=== PATIENT | male | born 1975 | race Caucasian/White ===

== ENCOUNTER 2018-12-29 16:01 | Observation (INO) ==
--- NOTE | 2018-12-29 16:41 | XR ---
EXAM DATE: 12/29/2018 4:36 PM EST AGE/SEX: 43 years / Male INDICATIONS: . Chest pain. CLINICAL DATA: This is the patient's initial encounter. Patient reports that signs and symptoms have been present for 1 day and indicates a pain score of 5/10. MEDICAL/SURGICAL HISTORY: None. None. COMPARISON: No prior exams available for comparison. FINDINGS: PA and lateral views of the chest demonstrate the lungs to be symmetrically aerated without evidence of mass, infiltrate or effusion. The cardiomediastinal contours are unremarkable. Osseous structures are intact. CONCLUSION: No acute cardiopulmonary disease. Electronically signed by: Juan Alberto Hart MD Board Certified Radiologist 12/29/2018 4:39 PM EST
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
[2018-12-29 16:53] LABS: Baso % (Auto) 0.6 % (0.0-2.0); Eos # (Auto) 0.1 th/mm3 (0.0-0.4); Eos % (Auto) 1.5 % (0.0-4.0); Hematocrit 44.7 % (39.0-51.0); Hemoglobin 15.4 gm/dL (13.0-17.0); Lymph # (Auto) 2.3 th/mm3 (1.0-4.8); Mean Corpuscular HGB Conc 34.6 % (32.0-36.0); Mean Corpuscular Hemoglobin 30.5 pg (27.0-34.0); Mean Corpuscular Volume 88.3 fL (80.0-100.0); Mean Platelet Volume 7.7 fL (7.0-11.0); Mono # (Auto) 0.9 th/mm3 (0.0-0.9); Mono % (Auto) 10.6 % (0.0-8.0); Neut # (Auto) 4.8 th/mm3 (1.8-7.7); Neut % (Auto) 59.3 % (16.0-70.0); Platelet Count 287 th/mm3 (150-450); Red Blood Count 5.06 mil/mm3 (4.50-5.90); Red Cell Distribution Width 12.2 % (11.6-17.2); White Blood Count 8.1 th/mm3 (4.0-11.0)
[2018-12-29 17:05] LABS: Chloride 107 meq/L (98-107); Potassium 3.8 meq/L (3.5-5.1); Sodium 138 meq/L (136-145)
[2018-12-29 17:09] LABS: Anion Gap 6 meq/L (5-15); Blood Urea Nitrogen 10 mg/dL (7-18); Calcium 8.3 mg/dL (8.5-10.1); Carbon Dioxide 24.9 meq/L (21.0-32.0); Glucose,Random 90 mg/dL (74-106)
[2018-12-29 17:12] LABS: Alanine Aminotransferase 47 U/L (12-78); Aspartate Aminotransferase 21 U/L (15-37); Glomerular Filtration Rate Greater Than 89 mL/min (>89)
[2018-12-29 17:14] LABS: Total Protein 7.5 g/dL (6.4-8.2)
[2018-12-29 17:15] LABS: Alkaline Phosphatase 84 U/L (45-117)
[2018-12-29] MEDS ORDERED: Morphine Inj 4 MG/ML Vial IV.PUSH ONE (17:32)
--- NOTE | 2018-12-29 19:46 | ECG ---
Date Performed: 12/29/2018 Time Performed: 19:12:49 PTAGE: 43 years EKG: SINUS BRADYCARDIA POSSIBLE LEFT VENTRICULAR HYPERTROPHY NONSPECIFIC T-WAVE ABNORMALITY ABNO RMAL ECG Since PREVIOUS TRACING , no significant change noted PREVIOUS TRACIN12/29/2018 16.16 DOCTOR: Yaa Fleming Interpretating Date/Time 12/29/2018 19:45:35
--- NOTE | 2018-12-29 19:51 | ECG ---
Date Performed: 12/29/2018 Time Performed: 16:16:27 PTAGE: 43 years EKG: SINUS BRADYCARDIA POSSIBLE LEFT VENTRICULAR HYPERTROPHY NONSPECIFIC T-WAVE ABNORMALITY ABNO RMAL ECG Since PREVIOUS TRACING , no significant change noted PREVIOUS TRACIN05/04/2010 13.34 DOCTOR: Yaa Fleming Interpretating Date/Time 12/29/2018 19:49:26
[2018-12-29 23:21] LABS: Creatine Kinase 68 U/L (39-308)
[2018-12-30 01:58] LABS: Creatine Kinase 65 U/L (39-308)
[2018-12-30 07:15] LABS: Cholesterol 183 mg/dL (120-200)
[2018-12-30 07:17] LABS: HDL Cholesterol 37.3 mg/dL (40.0-60.0); LDL Cholesterol,Calculated 101 mg/dL (0-99); Triglycerides 222 mg/dL (42-150)
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
[2018-12-30 10:27] VITALS: PULSE 51
[2018-12-30] MEDS ORDERED: Regadenoson Inj 0.4 MG/5 ML Syringe IV.PUSH ONE (11:30)
[2018-12-30 14:08] VITALS: BP 120/67; RESP 16; TEMP 98; O2SAT 96
--- NOTE | 2018-12-30 15:31 | NM ---
EXAM DATE: 12/30/2018 3:04 PM EST AGE/SEX: 43 years / Male INDICATIONS:Angina. . CLINICAL DATA: This is the patient's initial encounter. Patient reports that signs and symptoms have been present for 1 day and indicates a pain score of 5/10. MEDICAL/SURGICAL HISTORY: . Appendectomy. COMPARISON: No prior exams available for comparison. DOSE: 11 mCi Tc 99m Myoview at rest 35 mCi [id number] at stress 0.4 mg Lexiscan STRESS SYMPTOMS: Dyspnea, leg and head pressure. EJECTION FRACTION: 66 % TECHNIQUE: The patient underwent pharmacologic stress with infusion of prescribed dose. Continuous ECG tracing was monitored during stress. Gated SPECT imaging was performed after stress and conventi onal SPECT imaging was performed at rest. The examination was performed on a SPECT/CT scanner, both attenuation and non-corrected datasets were reviewed. FINDINGS: Distribution: The maximum perfused segment at stress is in the anterolateral wall. Perfusion Study: The pattern of perfusion at stress is within normal limits. Gated Study: There are intact wall motion and wall thickening without hypokinetic or dyskinetic segm ents. The ejection fraction is calculated at 66%. RISK CATEGORY: Low (<1% Annual Mortality Rate) CONCLUSION: 1. Negative examination. Electronically signed by: Ej Senior MD Board Certified Radiologist 12/30/2018 3:30 PM EST
--- NOTE | 2018-12-30 16:08 | ECG ---
Date Performed: 12/30/2018 Time Performed: 01:24:09 PTAGE: 43 years EKG: SINUS BRADYCARDIA NONSPECIFIC T-WAVE ABNORMALITY BORDERLINE ECG Since PREVIOUS TRACING , no significant change noted PREVIOUS TRACIN12/29/2018 22.25 DOCTOR: Yaa Fleming Interpretating Date/Time 12/30/2018 16:06:15
--- NOTE | 2018-12-30 16:11 | ECG ---
Date Performed: 12/29/2018 Time Performed: 22:25:58 PTAGE: 43 years EKG: SINUS BRADYCARDIA POSSIBLE LEFT VENTRICULAR HYPERTROPHY NONSPECIFIC T-WAVE ABNORMALITY ABNO RMAL ECG Since PREVIOUS TRACING , no significant change noted PREVIOUS TRACIN12/29/2018 19.12 DOCTOR: Yaa Fleming Interpretating Date/Time 12/30/2018 16:08:40
--- NOTE | 2018-12-31 10:33 | TR ---
Date Performed: 12/30/2018 Time Performed: 14:15:33 DOCTOR: [facility] DRUG LIST: CLINICAL HISTORY: REASON FOR TEST: Chest pain REASON FOR ENDING: OBSERVATION: CONCLUSION: Lexiscan stress test was performed under standard four minute protocol. Radionuclide was injected one minute prior to ending the test. No electrocardiographic abormalities were present to suggest ischemia. Nuclear imaging and interpretation are pending. COMMENTS:
== END 2018-12-30 16:40 | disposition home or self-care (01) ==
LOC: PHED 16:01 → PHEDA 16:01 → PH3 18:39
PROVIDERS: ADMIT Hospitalist; ATTEND Hospitalist
DX: R00.1 Bradycardia, unspecified; R06.09 Other forms of dyspnea; E78.1 Pure hyperglyceridemia; R07.89 Other chest pain; R61 Generalized hyperhidrosis; I20.9 Angina pectoris, unspecified; M54.2 Cervicalgia; F17.220 Nicotine dependence, chewing tobacco, uncomplicated
CPT/HCPCS: 71020; 71046; 78452; 80053; 80061; 82550; 83520; 83880; 84484; 85025; 85379; 90774; 93005; 93017; 96374; 99285; A9502; C8952; G0378; J2270; J2785; Q9969